=== PATIENT | female | born 1970 | race Two or more races ===

== ENCOUNTER 2020-09-02 12:01 | Outpatient (CLI) | payer OTHER | END 2020-09-02 12:06 | disposition home or self-care (01) | LOC: MAMO-SONO 12:01 | PROVIDERS: ATTEND Obstetrics & Gynecology Gynecology | DX: Z12.31 Encounter for screening mammogram for malignant neoplasm of breast (principal); N64.4 Mastodynia; D25.1 Intramural leiomyoma of uterus ==